=== PATIENT | female | born 1935 | race Caucasian/White ===

== ENCOUNTER 2018-01-05 15:44 | Emergency (ER) | payer MEDICARE ==
[~2018-01-05] VITALS: Ht 154.9 cm; Wt 50.8 kg
[2018-01-05 15:54] VITALS: BP 157/72
[2018-01-05] MEDS ORDERED: DEXAMETHASONE SOD PHOS 20 MG/5 ML VIAL. IV ONE (16:15)
[2018-01-05] MEDS ORDERED: IPRATRPIUM/ALBUTEROL 0.5/2.5MG 3 ML NEBU. NEB ONE (16:15)
[2018-01-05 16:37] LABS: BASO # 0.1 x10^3/uL (0.0-0.2); BASO % 1 % (0-3); EOS # 0.1 x10^3/uL (0.0-0.7); EOS % 0 % (0-3); HEMATOCRIT 40.3 % (36.0-47.0); HEMOGLOBIN 13.8 g/dL (12.0-15.5); LYMPH % 15 % (24-48); MEAN CORPUSCULAR HEMOGLOBIN 29 pg (25-35); MEAN CORPUSCULAR HGB CONC 34 g/dL (31-37); MEAN CORPUSCULAR VOLUME 86 fL (79-100); MONO # 1.5 x10^3/uL (0.0-1.1); MONO % 7 % (0-9); NEUT # 15.8 x10^3uL (1.8-7.7); NEUT % 77 % (31-73); PLATELET COUNT 336 x10^3/uL (140-400); RED BLOOD COUNT 4.69 x10^6/uL (3.50-5.40); RED CELL DISTRIBUTION WIDTH 14.3 % (11.5-14.5); WHITE BLOOD COUNT 20.5 x10^3/uL (4.0-11.0)
--- NOTE | 2018-01-05 16:42 | PHYS DOC ---
Past Medical History Past Medical History: Asthma, COPD Past Surgical History: Appendectomy, Tonsillectomy, Other Additional Past Surgical Histo: Adenoids Alcohol Use: Occasionally Drug Use: None Adult General Chief Complaint Chief Complaint: Congestion HPI HPI Patient is a 82 year old female who presents with shortness of air, chest congestion, cough 1 week. Patient states she has been afebrile. Patient denies any chest pain. Patient states she's been taking her breathing treatments and inhaler at home and yesterday they started not working is not helping to open up her lungs. Patient has no known drug allergies and takes no medications daily. Patient states she only has a inhaler and breathing machine if she needs it. Patient has a history of COPD, emphysema, and appendectomy and tonsillectomy. Patient denies any pain. She's also been coughing up green mucus and has some ear congestion. Review of Systems Review of Systems Constitutional: Denies fever or chills [] Eyes: Denies change in visual acuity, redness, or eye pain [] HENT: Nasal congestion. Denies sore throat [] Respiratory: productive cough and shortness of breath [] Cardiovascular: No additional information not addressed in HPI [] GI: Denies abdominal pain, nausea, vomiting, bloody stools or diarrhea [] : Denies dysuria or hematuria [] Musculoskeletal: Denies back pain or joint pain [] Integument: Denies rash or skin lesions [] Neurologic: Denies headache, focal weakness or sensory changes [] All other systems were reviewed and found to be within normal limits, except as documented in this note. Current Medications Current Medications Current Medications Medications (Trade) Dose Ordered Sig/Alaina Start Time Stop Time Status Last Admin Dose Admin Albuterol/ Ipratropium (Duoneb) 3 ml 1X ONCE 01/05/18 16:15 01/05/18 16:16 DC 01/05/18 16:33 3 ML Dexamethasone Sodium Phosphate (Decadron) 10 mg 1X ONCE 01/05/18 16:15 01/05/18 16:16 DC 01/05/18 16:53 10 MG Levofloxacin/ Dextrose 150 ml @ 100 mls/hr 1X ONCE 01/05/18 17:15 01/05/18 18:44 DC 01/05/18 17:37 100 MLS/HR Sodium Chloride 1,000 ml @ 1,000 mls/hr 1X ONCE 01/05/18 17:15 01/05/18 18:14 DC 01/05/18 17:37 1,000 MLS/HR Allergies Allergies Allergies Coded Allergies Type Severity Reaction Last Updated Verified No Known Drug Allergies 04/14/15 No Physical Exam Physical Exam Constitutional: Well developed, well nourished, no acute distress, non-toxic appearance. [] HENT: Normocephalic, atraumatic, bilateral external ears normal, oropharynx moist, no oral exudates, nose normal. [] Eyes: PERRLA, EOMI, conjunctiva normal, no discharge. [] Neck: Normal range of motion, no tenderness, supple, no stridor. [] Cardiovascular: Heart rate regular rhythm, no murmur [] Lungs & Thorax: Bilateral breath sounds with inspiratory and expiratory wheezes. [] Abdomen: Bowel sounds normal, soft, no tenderness, no masses, no pulsatile masses. [] Skin: Warm, dry, no erythema, no rash. [] Back: No tenderness, no CVA tenderness. [] Extremities: No tenderness, no cyanosis, no clubbing, ROM intact, no edema. [] Neurologic: Alert and oriented X 3, normal motor function, normal sensory function, no focal deficits noted. [] Psychologic: Affect normal, judgement normal, mood normal. [] Current Patient Data Vital Signs Vital Signs Date Time Temp Pulse Resp B/P (MAP) Pulse Ox O2 Delivery O2 Flow Rate FiO2 01/05/18 16:36 96 Room Air 01/05/18 15:54 98.7 100 18 157/72 (100) 98.7 Lab Values Laboratory Tests Test 01/05/18 16:25 White Blood Count 20.5 x10^3/uL (4.0-11.0) H Red Blood Count 4.69 x10^6/uL (3.50-5.40) Hemoglobin 13.8 g/dL (12.0-15.5) Hematocrit 40.3 % (36.0-47.0) Mean Corpuscular Volume 86 fL (79-100) Mean Corpuscular Hemoglobin 29 pg (25-35) Mean Corpuscular Hemoglobin Concent 34 g/dL (31-37) Red Cell Distribution Width 14.3 % (11.5-14.5) Platelet Count 336 x10^3/uL (140-400) Neutrophils (%) (Auto) 77 % (31-73) H Lymphocytes (%) (Auto) 15 % (24-48) L Monocytes (%) (Auto) 7 % (0-9) Eosinophils (%) (Auto) 0 % (0-3) Basophils (%) (Auto) 1 % (0-3) Neutrophils # (Auto) 15.8 x10^3uL (1.8-7.7) H Lymphocytes # (Auto) 3.0 x10^3/uL (1.0-4.8) Monocytes # (Auto) 1.5 x10^3/uL (0.0-1.1) H Eosinophils # (Auto) 0.1 x10^3/uL (0.0-0.7) Basophils # (Auto) 0.1 x10^3/uL (0.0-0.2) Segmented Neutrophils % 72 % (35-66) H Band Neutrophils % 8 % (0-9) Lymphocytes % 11 % (24-48) L Monocytes % 7 % (0-10) Eosinophils % 1 % (0-5) Basophils % 1 % (0-3) Platelet Estimate Adequate (ADEQUATE) Sodium Level 135 mmol/L (136-145) L Potassium Level 4.4 mmol/L (3.5-5.1) Chloride Level 104 mmol/L (98-107) Carbon Dioxide Level 26 mmol/L (21-32) Anion Gap 5 (6-14) L Blood Urea Nitrogen 10 mg/dL (7-20) Creatinine 1.0 mg/dL (0.6-1.0) Estimated GFR (Cockcroft-Gault) 53.3 BUN/Creatinine Ratio 10 (6-20) Glucose Level 88 mg/dL (70-99) Lactic Acid Level 1.1 mmol/L (0.4-2.0) Calcium Level 8.7 mg/dL (8.5-10.1) Total Bilirubin 0.9 mg/dL (0.2-1.0) Aspartate Amino Transferase (AST) 20 U/L (15-37) Alanine Aminotransferase (ALT) 19 U/L (14-59) Alkaline Phosphatase 98 U/L (46-116) Troponin I Quantitative < 0.017 ng/mL (0.000-0.055) NB-Wuj-F-Type Natriuretic Peptide 253 pg/mL (0-449) Total Protein 8.4 g/dL (6.4-8.2) H Albumin 3.3 g/dL (3.4-5.0) L Albumin/Globulin Ratio 0.6 (1.0-1.7) L Laboratory Tests 01/05/18 16:25 Laboratory Tests 01/05/18 16:25 EKG EKG Sinus Rhythm and Incomplete Right Bundle Branch Block, No STEMI.[] Interpretation Time: [address] Tellez Radiology/Procedures Radiology/Procedures Chest x ray[] Impressions: Chest x ray shows no acute findings and Read by Dr Tellez PROCEDURE: CHEST PA & LATERAL Indication:short of breath x 5 days, hx of COPD and Asthma TECHNIQUE:PA and lateral views of the chest COMPARISON: 2014 FINDINGS: Heart is normal in size. Lungs are hyperinflated. No focal consolidation. Diffuse prominent interstitial markings are seen. No pneumothorax or pleural effusion. Visualized bony thorax is within normal limits. IMPRESSION: Mild COPD. No acute pulmonary process. Course & Med Decision Making Course & Med Decision Making Patient is alert and oriented. Patient states that she smokes 1 pack of cigarettes a day but her smoking has decreased the last couple of days. Upon examination the patient has inspiratory and expiratory wheezes and SOA. Patient speaks in full sentences but does not appear in respiratory distress. Skin is pink warm and dry. She is steady on her feet without exertion with walking. Patient denies chest pain. Ears are pearly white and throat is pink and without exudates are without acute findings. Patient has no extremity edema or numbness and tingling. I the ED the Patient is to receive IV dexamethasone and a breathing treatment. Patient is also to receive an EKG, chest x-ray, and labs to rule out infection or cardiac normalities due to patient's age, current illness and past medical history. Patient's EKG read as sinus rhythm, incomplete right bundle dalia block, and no STEMI. EKG read by Dr. Tellez. Patient WBC is high at 20.5. Patient's lactic acid and troponin are normal. Patient meets SIRs criteria with probable source is being viral vs bacterial bronchitis. Patient was offered admission but declined admission and agrees to follow up with her primary care. Patient to be given Levaquin IV, dexamethasone in ED. patient is sent home with a prescription for Levaquin and prednisone. Patient denies needing any refills of a rescue inhaler or nebulized breathing treatments. [] Dragon Disclaimer Dragon Disclaimer This electronic medical record was generated, in whole or in part, using a voice recognition dictation system. Departure Departure Impression: Primary Impression: Bronchitis Additional Impression: Leukocytosis Disposition: HOME, SELF-CARE Condition: STABLE Referrals: ALLI PATTERSON (PCP) Patient Instructions: Acute Bronchitis, Leukocytosis Additional Instructions: Follow-up with her primary care provider. Take medications as prescribed. Scripts Prednisone (PREDNISONE) 50 Mg Tablet 50 MG PO DAILY for 4 Days, #4 TAB Prov: JENNI MILLER 01/05/18 Levofloxacin (LEVAQUIN) 750 Mg Tablet 750 MG PO DAILY for 7 Days, #7 TAB Prov: JENNI MILLER 01/05/18 Attending Signature Attending Signature I have reviewed the PA/CLIENT SERVICE MANAGER's note and plan of care. I was available for consultation as needed during the patient's visit in the emergency department. I agree with the clinical impression, plan, and disposition. Problem Qualifiers JENNI MILLER APRN Jan 05, 2018 16:42 DEON TELLEZ DO Jan 06, 2018 13:10
[2018-01-05 16:53] LABS: ALBUMIN 3.3 g/dL (3.4-5.0); POTASSIUM 4.4 mmol/L (3.5-5.1); TOTAL BILIRUBIN 0.9 mg/dL (0.2-1.0)
[2018-01-05 17:05] LABS: ALBUMIN/GLOBULIN RATIO 0.6 (1.0-1.7); CALCIUM 8.7 mg/dL (8.5-10.1); GFR 53.3; TOTAL PROTEIN 8.4 g/dL (6.4-8.2)
[2018-01-05 17:08] LABS: % BANDS 8 % (0-9); % BASOS 1 % (0-3); % EOS 1 % (0-5); % LYMPHS 11 % (24-48); % MONOS 7 % (0-10); % SEGS 72 % (35-66); PLT ESTIMATE ADEQUATE (ADEQUATE)
[2018-01-05] MEDS ORDERED: IV NORMAL SALINE 1000ML BAG 1,000 ML IV ONE (17:15)
--- NOTE | 2018-01-05 17:19 | EKG ---
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
[2018-01-05] MEDS ORDERED: PRED50TA PO (17:21)
[2018-01-05] MEDS ORDERED: LEVO750T31 PO (17:21)
--- NOTE | 2018-01-05 18:21 | RAD ---
Indication:short of breath x 5 days, hx of COPD and Asthma TECHNIQUE:PA and lateral views of the chest COMPARISON: 2014 FINDINGS: Heart is normal in size. Lungs are hyperinflated. No focal consolidation. Diffuse prominent interstitial markings are seen. No pneumothorax or pleural effusion. Visualized bony thorax is within normal limits. IMPRESSION: Mild COPD. No acute pulmonary process. Electronically signed by: Karri Philip DO (01/05/2018 6:18 PM) [facility]
== END 2018-01-05 19:39 | disposition home or self-care (01) ==
LOC: ER 15:44
DX: J40 Bronchitis, not specified as acute or chronic (principal); D72.829 Elevated white blood cell count, unspecified; J44.9 Chronic obstructive pulmonary disease, unspecified
CPT/HCPCS: 36415; 71046; 80053; 83605; 83880; 84484; 85007; 85025; 87040; 93005; 94640; 96365; 96375; 99285; J1100; J1956; J7030; J7620

== ENCOUNTER 2019-12-07 16:04 | Emergency (ER) | payer MEDICARE ==
[~2019-12-07] VITALS: Ht 154.9 cm; Wt 54.6 kg
[~2019-12-07 16:04] MED LIST: LEVO750T31 PO; PRED50TA PO
--- NOTE | 2019-12-07 17:08 | PHYS DOC ---
Past Medical History Past Medical History: Asthma, COPD Past Surgical History: Appendectomy, Tonsillectomy, Other Additional Past Surgical Histo: Adenoids Smoking Status: Current Every Day Smoker Alcohol Use: Occasionally Drug Use: None General Adult EDM: Chief Complaint: INSECT BITE HPI: HPI: Patient is a 84 year old female who presents with was bitten by a Seed tick on the top of her left foot about a week ago and now for the last few days she has had increasing left foot swelling and left foot heel pain especially with walking. She states she is up on her feet a lot but not more than usual. She denies numbness or tingling, fever, injury to the extremity, coolness to the extremity, skin changes to the extremity, fever. She states it is an aching sharp pain that radiates to the heel of the foot. There is tenderness with palpation to the heel itself. The foot looks to be 1+ increased swelling compared to the right foot. There is no deformities or heat to the joint. No joint laxity and no rash to the extremity or where the tick had bitten her. Patient has history of COPD, asthma, smoker, appendectomy. She rates overall pain 6 out of 10. She has not taken anything for her pain. Review of Systems: Review of Systems: Constitutional: Denies fever or chills. [] Eyes: Denies change in visual acuity. [] HENT: Denies nasal congestion or sore throat. [] Respiratory: Denies cough or shortness of breath. [] Cardiovascular: Denies chest pain. Left foot 1+ edema. [] GI: Denies abdominal pain, nausea, vomiting, bloody stools or diarrhea. [] : Denies dysuria. [] Musculoskeletal: Denies back pain or joint pain. Left heel pain. [] Integument: Denies rash. Left heel swelling. [] Neurologic: Denies headache, focal weakness or sensory changes. [] Endocrine: Denies polyuria or polydipsia. [] Lymphatic: Denies swollen glands. [] Psychiatric: Denies depression or anxiety. [] Heart Score: Risk Factors: Risk Factors: DM, Current or recent (<one month) smoker, HTN, HLP, family history of CAD, obesity. Risk Scores: Score 0 - 3: 2.5% MACE over next 6 weeks - Discharge Home Score 4 - 6: 20.3% MACE over next 6 weeks - Admit for Clinical Observation Score 7 - 10: 72.7% MACE over next 6 weeks - Early Invasive Strategies Allergies: Allergies: Allergies Coded Allergies Type Severity Reaction Last Updated Verified No Known Drug Allergies 04/14/15 No Physical Exam: PE: Constitutional: Well developed, well nourished, no acute distress, non-toxic appearance. [] HENT: Normocephalic, atraumatic, bilateral external ears normal, oropharynx moist, no oral exudates, nose normal. [] Eyes: PERRLA, EOMI, conjunctiva normal, no discharge. [] Neck: Normal range of motion, no tenderness, supple, no stridor. [] Cardiovascular:Heart rate regular rhythm, no murmur [] Lungs & Thorax: Bilateral breath sounds clear to auscultation [] Abdomen: Bowel sounds normal, soft, no tenderness, no masses, no pulsatile masses. [] Skin: Warm, dry, no erythema, no rash. [] Back: No tenderness, no CVA tenderness. [] Extremities: Left heel tenderness and redness, no cyanosis, no clubbing, ROM intact, no edema. [] Neurologic: Alert and oriented X 3, normal motor function, normal sensory function, no focal deficits noted. [] Psychologic: Affect normal, judgement normal, mood normal. [] Current Patient Data: Vital Signs: Vital Signs Date Time Temp Pulse Resp B/P (MAP) Pulse Ox O2 Delivery O2 Flow Rate FiO2 12/07/19 16:19 98.4 95 16 164/71 (102) 100 Room Air 98.4 EKG: EKG: [] Radiology/Procedures: Radiology/Procedures: [] Impression: [facility] [address] [place], [place] [id number] IMAGING REPORT Signed PATIENT: GABRIELA ORELLANAOUNT: [id number] : 1935 LOCATION: ER AGE: 84 SEX: F EXAM STATUS: REG ER ORD. PHYSICIAN: JENNI MILLER APRN REASON: swelling and pain, no known injury PROCEDURE: FOOT LEFT 3V PROCEDURE: FOOT LEFT 3V STUDY DATE: 12/07/2019 CLINICAL INDICATION / HISTORY: Reason: swelling and pain, no known injury / Spl. Instructions: / History: . TECHNIQUE: AP, lateral and oblique views of the left foot. COMPARISON: None FINDINGS: No fracture or dislocation is identified. The bone density is normal. The joint space widths are maintained, and there are no erosions to suggest an inflammatory arthropathy. Osteophytic spurring on the dorsal aspect of the naviculocuneiform joint is compatible degenerative change. Healing nondisplaced avulsion fracture can appear similar. Mild midfoot dorsal soft tissue swelling is seen. IMPRESSION: Mild midfoot soft tissue swelling with ossific density at the mid foot naviculocuneiform joint favored to represent degenerative osteophytic spurs rather than avulsion fracture. Correlate with physical exam. Otherwise no acute findings in the left foot by x-ray. Electronically signed by: Cynthia Britton MD (12/07/2019 5:28 PM) [id number] DICTATED and SIGNED BY: CYNTHIA BRITTON MD DATE: 12/07/19 1728 Course & Med Decision Making: Course & Med Decision Making Pertinent Labs and Imaging studies reviewed. (See chart for details) See HPI. Alert and oriented. Speaks in full complete sentences. Afebrile. Pedal pulse strong present. Cap refill less than 3 seconds. No calf tenderness. Patient denies any shortness of air, chest pain, fever, dizziness, headache, nausea, vomiting, diarrhea, other body aches, rashes, abdominal pain, back pain, fatigue. I have discussed this patient with Dr. Torres who states to go ahead and start the patient on doxycycline 100 mg twice daily for 14 days. IMPRESSION: Mild midfoot soft tissue swelling with ossific density at the mid foot naviculocuneiform joint favored to represent degenerative osteophytic spurs rather than avulsion fracture. Correlate with physical exam. Otherwise no acute findings in the left foot by x-ray. Patient to follow-up with her primary care physician. [] Abdiel Disclaimer: Abdiel Disclaimer: This electronic medical record was generated, in whole or in part, using a voice recognition dictation system. Departure Departure Impression: Primary Impression: Bone spur of left foot Disposition: 01 HOME, SELF-CARE Condition: STABLE Referrals: ALLI PATTERSON (PCP) TAL RUSSELL MD Patient Instructions: Heel Spur Additional Instructions: Follow up with the orthopedic I have referred you too. Take medication as prescribed and with food. This medication can make you sleepy so I would not drive on this medication. Also try ice or heat to help pain. Scripts Hydrocodone/Apap 5-325 (NORCO 5-325 TABLET) 1 Each Tablet 1 TAB PO PRN Q6HRS PRN for PAIN, #12 TAB 0 Refills Prov: JENNI MILLER APRN 12/07/19 Justicifation of Admission Dx: Justifications for Admission: Justification of Admission Dx: N/A JENNI MILLER APRN Dec 07, 2019 17:08
--- NOTE | 2019-12-07 17:31 | RAD ---
PROCEDURE: FOOT LEFT 3V STUDY DATE: 12/07/2019 CLINICAL INDICATION / HISTORY: Reason: swelling and pain, no known injury / Spl. Instructions: / History: . TECHNIQUE: AP, lateral and oblique views of the left foot. COMPARISON: None FINDINGS: No fracture or dislocation is identified. The bone density is normal. The joint space widths are maintained, and there are no erosions to suggest an inflammatory arthropathy. Osteophytic spurring on the dorsal aspect of the naviculocuneiform joint is compatible degenerative change. Healing nondisplaced avulsion fracture can appear similar. Mild midfoot dorsal soft tissue swelling is seen. IMPRESSION: Mild midfoot soft tissue swelling with ossific density at the mid foot naviculocuneiform joint favored to represent degenerative osteophytic spurs rather than avulsion fracture. Correlate with physical exam. Otherwise no acute findings in the left foot by x-ray. Electronically signed by: Shaunna Britton MD (12/07/2019 5:28 PM) [id number]
[2019-12-07] MEDS ORDERED: HYDR-3164 PO (17:43)
[2019-12-07 18:00] VITALS: BP 155/56
== END 2019-12-07 18:14 | disposition home or self-care (01) ==
LOC: ER 16:04
DX: M77.52 Other enthesopathy of left foot and ankle (principal); J44.9 Chronic obstructive pulmonary disease, unspecified; F17.200 Nicotine dependence, unspecified, uncomplicated
CPT/HCPCS: 73630; 99283

== ENCOUNTER → 2021-06-02 | Outpatient (CLI) | payer MEDICARE ==
[~2021-06-02] MED LIST changes: +HYDR-3164 PO
--- NOTE | 2021-06-04 20:02 | PATHOLOGY ---
[facility] Accession Number: [id number] . 01 Material submitted: . hand - RIGHT HAND MASS- SHORT SUTURE DISTAL, LONG SUTURE LATERAL. Modifiers: right . 01 Clinician provided ICD-10: R22.31 . 02 Diagnosis: Skin and subcutaneous tissue, right hand mass excision: - INVASIVE WELL-DIFFERENTIATED SQUAMOUS CELL CARCINOMA; INKED MARGINS OF EXCISION FREE OF NEOPLASM. - Solar lentigo. . (JPM:mm; 06/04/2021) [facility] 06/04/2021 1316 Local . 02 Electronically signed: . Abel Nunes MD, Pathologist NPI- [id number] . 01 Gross description: . Received in formalin labeled "Marlene Mcdowell, right hand mass" is an oriented ellipse of skin measuring 2.3 x 1.4 x 0.8 cm. There is a long suture along 1 of the long edges which designates lateral and will be arbitrarily designated as 12:00 as well as a short suture near one of the tips which indicates distal and will be arbitrarily designated as 3:00. The skin surface displays a poorly defined, irregular in contour, and pale hopson-shen lesion measuring 1.6 x 1.3 x 0.7 cm. The margins are inked as follows: 12:00 to 3:00 yellow, 3:00 to 9:00 black, and 9:00 to 12:00 blue. The specimen is sectioned into 12 pieces. Sectioning reveals an intact cystic structure filled with pale hopson friable material measuring 0.9 cm The specimen is submitted entirely in A1 to A4, with the tips in the last cassette. ([facility]; 06/03/2021) [facility] 06/03/2021 1726 Local . 02 Pathologist provided ICD-10: C44.622, L81.4 . 02 CPT . 624391 Specimen Comment: A courtesy copy of this report has been sent to [phone], [phone] Specimen Comment: [id number], Specimen Comment: Report sent to , DR PATTERSON / DR LUNDBERG Specimen Comment: A duplicate report has been generated due to demographic updates. Performed at: 01 [facility] [address] [facility] [address], [place] [id number] MD Ranjit Ma MD Phone: [phone] Performed at: 02 [facility] [address] [place], [place] [id number] MD Abel Nunes MD Phone: [phone]
== END ==
LOC: SPEC 16:05
PROVIDERS: ATTEND Plastic Surgery
DX: C44.622 Squamous cell carcinoma of skin of right upper limb, including shoulder (principal); L81.4 Other melanin hyperpigmentation; R22.31 Localized swelling, mass and lump, right upper limb
CPT/HCPCS: 88305